=== PATIENT | female | born 1975 | race American Indian/Alaskan Native ===

== ENCOUNTER 2019-12-15 08:41 | Outpatient (CLI) | payer BC ==
--- NOTE | 2019-12-15 10:34 | Ultrasound Report ---
ULTRASOUND-GUIDED NEEDLE CORE BIOPSY LEFT BREAST WITH CLIP PLACEMENT CLINICAL: A palpable left breast mass at 3:30 o'clock 15 cm from the nipple. FINDINGS: The procedure was explained to the patient and informed consent was obtained. Ultrasound demonstrated the mass.. I marked the breast with a felt tip marker and a timeout was called. The skin was prepped with Chloro -Prep and anesthetized with 1% lidocaine. Needle core biopsy was performed through small dermatotomy using ultrasound guidance, 2% lidocaine wi th epinephrine for deep anesthesia and a 14-gauge Achieve biopsy device. 5 cores were obtained and pl aced in formalin. A clip was deployed within the mass. The patient tolerated the procedure well and there were no apparent complications. Hemostasis was ach ieved with minimal effort and a sterile dressing was applied. A post procedure mammogram was not performed because of the far lateral location of the mass. She lef t the department in good condition and was given instructions for wound care and follow-up. IMPRESSION: Uncomplicated ultrasound guided needle core biopsy with clip placement left breast. Signer Name: Marbin De Sozua MD Signed: 12/15/2019 10:29 AM Workstation Name: [id number]
== END 2019-12-15 08:42 | disposition home or self-care (01) ==
LOC: SPVWC 08:41
PROVIDERS: ATTEND Surgery
DX: N63.23 Unspecified lump in the left breast, lower outer quadrant (principal); D24.2 Benign neoplasm of left breast
CPT/HCPCS: 88305

== ENCOUNTER 2020-05-04 08:47 | Outpatient (CLI) | payer BC ==
--- NOTE | 2020-05-04 11:11 | Ultrasound Report ---
Ultrasound-guided left breast nodule biopsy Postprocedure left breast mammogram HISTORY: ABNORMAL MAMMOGRAM. Patient with a small nodule at the 5:00 position of the left breast pre sents for biopsy. COMPARISON: Left breast ultrasound from 04/19/2020 PROCEDURE: The risks (including but not limited to bleeding and infection) and benefits were explain ed to the patient and informed consent was obtained. A time out procedure was performed. The proced ure site was prepped and draped in the usual sterile fashion and lidocaine was used for local anesthe aravind. Under direct ultrasound guidance, a 14-gauge biopsy needle was advanced to the peripheral margin of t he left breast nodule located at the 5:00 position from an inferior/lateral approach. A total of 3 se parate biopsies were performed with samples placed directly in formalin. Following, a postsurgical cl ip was placed directly within the nodule and this was confirmed on the follow up left unilateral mamm ograms. The patient tolerated the procedure well with no complications. IMPRESSION: 1. Technically successful left breast nodule biopsy. 2. Satisfactory clip placement within the left breast nodule on unilateral the postoperative mammogra m. An addendum will be made at a later date once pathology results are completed. Signer Name: Daniel Villegas MD Signed: 05/04/2020 11:06 AM Workstation Name: [id number]
== END 2020-05-04 08:48 | disposition home or self-care (01) ==
LOC: SPVWC 08:47
PROVIDERS: ATTEND Surgery
DX: N63.23 Unspecified lump in the left breast, lower outer quadrant (principal); D24.2 Benign neoplasm of left breast
CPT/HCPCS: 88305

== ENCOUNTER 2020-11-15 08:12 | Outpatient (CLI) | payer BC ==
--- NOTE | 2020-11-15 08:49 | Mammography Report ---
DIGITAL SCREENING MAMMOGRAM WITH CAD, 11/15/2020 CLINICAL INFORMATION / INDICATION: Routine screening mammography. SCREENING MAMMO TECHNIQUE: Digital bilateral 2D mammography was obtained in the craniocaudal and mediolateral obliqu e projections. This examination was interpreted with the benefit of Computer-Aided Detection analysis . COMPARISON: 04/16/2019 through 05/04/2020. FINDINGS: Breast Density: The breasts are heterogeneously dense, which may obscure small masses. Benign-appearing nodularity bilaterally, more prominent on the right than the left, has not changed s ignificantly. Benign-appearing calcifications in the right breast are stable. There are 2 left biopsy clips. No new abnormality is seen in either breast. IMPRESSION: No mammographic evidence of malignancy. Follow up recommendation: Routine yearly BI-RADS Category 2: Benign. A "normal" or negative report should not discourage follow up or biopsy of a clinically significant f inding. A written summary of these findings will be mailed to the patient. The patient will be entered into a mammography reporting system which will generate a reminder letter for the patient's next appointmen t at the appropriate interval. The [employer] recommends yearly mammograms starting at age 40 and continuing as l jane as a woman is in good health. Breast MRI is recommended for women with an approximate 20-25% or greater lifetime risk of breast cancer, including women with a strong family history of breast or ova pedro cancer or who have been treated for Hodgkin's disease. Signer Name: Randall Gabriel MD Signed: 11/15/2020 8:45 AM Workstation Name: [id number]
== END 2020-11-15 08:13 | disposition home or self-care (01) ==
LOC: SPVWC 08:12
PROVIDERS: ATTEND Surgery
DX: Z12.31 Encounter for screening mammogram for malignant neoplasm of breast (principal)
CPT/HCPCS: 77067

== ENCOUNTER 2020-12-13 07:48 | Outpatient (CLI) | payer BC ==
--- NOTE | 2020-12-13 09:34 | Ultrasound Report ---
ULTRASOUND BREAST BILATERAL COMPLETE, 12/13/2020 CLINICAL INFORMATION / INDICATION: FIBROADENOSIS LEFT/ CYST RIGHT. Patient presents for bilateral scr eening breast ultrasound. TECHNIQUE: Complete sonographic evaluation of all 4 quadrants and retroareolar region was performed. COMPARISON: Prior mammogram 11/15/2020 and bilateral complete breast ultrasound 04/19/2020 FINDINGS: Right breast: Redemonstration of a heterogeneous hypoechoic mass in the right breast 8:00 position lo cated 8 cm from the nipple with associated coarse calcifications which is not significantly changed f rom prior examination, currently measuring up to 1.6 x 0.9 x 1.2 cm, previously 1.2 x 1.2 x 0.6 cm. T his was previously biopsied and benign. There is an oval circumscribed hypoechoic mass in the right b reast 10:00 position located 12 cm from the nipple measuring up to 2.4 x 1.1 x 2.6 cm. This mass has been stable mammographically and is considered benign, most compatible with a fibroadenoma. There is a similar benign-appearing oval circumscribed hypoechoic mass in the 10:00 position located 9 cm from the nipple measuring up to 8mm, and an 11 mm benign cyst in the 10:00 position located 10 cm from th e nipple. Left breast: Complete ultrasound of the left breast reveals several similar benign-appearing oval cir cumscribed hypoechoic masses, including a mass in the 3:00 position located 14 cm from the nipple marco suring up to 1.8 x 2.2 x 0.9 cm, the 2:00 position located 13 cm from the nipple measuring up to 1.3 cm, and the 4:00 position located 8 cm from the nipple measuring up to 1.2 cm. No dominant suspicious mass identified. IMPRESSION: 1. Multiple bilateral similar benign-appearing oval circumscribed hypoechoic masses most compatible w ith benign fibroadenomas. No dominant suspicious mass identified in either breast. Follow up recommendation: Back to schedule. BI-RADS Category 2: Benign. A normal or "negative" report should not preclude biopsy or follow-up of a clinically suspicious find ing. Signer Name: Mira Rai MD Signed: 12/13/2020 9:30 AM Workstation Name: Before the Call
== END 2020-12-13 07:49 | disposition home or self-care (01) ==
LOC: SPVWC 07:48
PROVIDERS: ATTEND Surgery
DX: N60.01 Solitary cyst of right breast (principal); N63.13 Unspecified lump in the right breast, lower outer quadrant; N63.11 Unspecified lump in the right breast, upper outer quadrant; N63.21 Unspecified lump in the left breast, upper outer quadrant; N60.22 Fibroadenosis of left breast